=== PATIENT | female | born 1980 | race Caucasian/White ===

== ENCOUNTER 2017-08-30 13:05 | Inpatient (IN) | payer OTHER ==
[2017-08-30 13:45] LABS: Lavender RECEIVED; Red RECEIVED
[2017-08-30 13:48] LABS: #Basophils 0.2 thou/uL (0.0-0.2); #Eosinphils 0.5 thou/uL (0.0-0.7); #Lymphocytes 4.1 thou/uL (1.20-3.40); #Monocytes 0.8 thou/uL (0.11-0.59); #Neutrophils 7.1 thou/uL (1.40-6.50); %Basophils 1.3 % (0.0-1.0); %Eosinophils 3.7 % (0.0-10.0); %Lymphocytes 32.5 % (21.0-51.0); %Monocytes 6.2 % (0.0-10.0); %Neutrophils 56.3 % (42.0-75.0); Hemoglobin 15.6 g/dL (12.0-16.0); Mean Corpuscular HGB CONC 33.4 g/dL (32.0-36.0); Mean Corpuscular Hemoglobin 31.8 pg (27.0-31.0); Mean Corpuscular Volume 95.3 fl (81.0-99.0); Mean Platelet Volume 7.5 fL (7.4-10.4); Platelet Count 473 thou/uL (130-400); RBC Distribution Width 11.5 % (11.5-14.5); Red Blood Cell (RBC) Count 4.91 mill/uL (4.20-5.40); White Blood Cell (WBC) Count 12.5 thou/uL (4.8-10.8)
[2017-08-30 14:12] LABS: ALT (SGPT) 22 U/L (8-55); AST (SGOT) 18 U/L (5-34); Albumin 4.7 g/dL (3.5-5.0); Alkaline Phosphatase 74 U/L (40-150); Anion Gap 12 mmol/L (10-20); BUN (Urea Nitrogen) 12 mg/dL (7.0-18.7); Bilirubin, Total 0.8 mg/dL (0.2-1.2); Calc. Creatinine Clearance 0 mL/min (70-130); Calcium 10.1 mg/dL (7.8-10.44); Carbon Dioxide 30 mmol/L (22-29); Chloride 101 mmol/L (98-107); Estimated GFR-MDRD 76; Globulin 3.4 g/dL (2.4-3.5); Glucose 88 mg/dL (70-105); Potassium 4.1 mmol/L (3.5-5.1); Protein, Total 8.1 g/dL (6.0-8.3); Sodium 139 mmol/L (136-145)
[2017-08-30 14:16] LABS: CKMB 0.9 ng/mL (0-6.6); Troponin I Less than 0.010 ng/mL (< 0.028)
[2017-08-30] MEDS ORDERED: Sodium Chloride 0.9% 10 ML ONE ×2 (14:39→18:16)
[2017-08-30] MEDS ORDERED: Thrombin 5000 UNITS/5 ML VIAL ONE ×2 (14:39→17:43)
[2017-08-30] MEDS ORDERED: Bupivacaine 0.5% 10 ML VIAL ONE (14:39)
--- NOTE | 2017-08-30 14:44 | PRG ---
DATE OF SERVICE: 08/30/2017 I personally interviewed and examined the patient and agree with documentation of Ana Tilley PA-C , dated 08/30/2017 in the [facility] system. Briefly, Rosey Sosa is a 37-year-old woman referred to Dr. Aleman's clinic for evaluation of new o nset back and leg discomfort starting 6 days ago. She came to our emergency department at that time and was evaluated for severe back pain, inability to stand up straight and radiating pain down both l ower extremities along with saddle anesthesia. She was given pain medication and sent up in clinic i n follow up. She made it to Ana Tilley's clinic today where symptoms were essentially the same as they were last week, although the pain is under some amount of better control. In the 6 days interv ening she has not had any incontinence, but she does have some saddle anesthesia. She has not lost u rine unwittingly. She has had no bowel movements. I am seeing her in the preoperative area in a stretcher and she has mild weakness of toe flexion bila terally. She has numbness in the S1 dermatome and the lower sacral dermatomes. I have reviewed an e mergent MRI scan performed today showing a very large intervertebral disk herniation at the lumbosacr al interspace causing pressure on all of the sacral nerve roots, higher up it is a little bit more pr ominent on the left lower down more prominent on the right. We discussed with Ms. Sosa the rationale for decompressing the sacral nerve roots. Those roots are particularly sensitive to ongoing stretch. So far, she has not had any incontinence, but I do not w ant it to progress to that. The size of the disk herniation is very significant. I offered a brenda ctomy with a microdiskectomy. INFORMED CONSENT: I discussed the indications, risks, benefits, alternatives, and expected outcomes of surgery. The risks, we discussed included, but were not limited to bleeding, infection, CSF leak, nerve damage, paralysis, incontinence, wheelchair dependence, major blood vessel injury, cardiopulmo nary complications of anesthesia and . She understands the risks and wants to proceed. Ms. Sosa has had nothing to eat or drink since 9:45 this morning. Even those sips were of clear li quids. She will be ready for surgery now.
[2017-08-30] MEDS ORDERED: Fentanyl 100 MCG/2 ML VIAL ONE ×3 (14:47→18:49)
[2017-08-30] MEDS ORDERED: Midazolam HCl 2 mg/2 ml Vial ONE ×2 (14:52→15:05)
[2017-08-30] MEDS ORDERED: CEFAZOLIN/Water 2 GM/20 ML SYRINGE ONE (14:57)
[2017-08-30] MEDS ORDERED: HYDROmorphone 0.5 MG/0.5 ML SYRINGE ONE (15:33)
[2017-08-30] MEDS ORDERED: Lidocaine 1% PF 5 ML VIAL ONE (17:12)
[2017-08-30] MEDS ORDERED: Ondansetron HCl/PF 4 MG/2 ML Vial ONE (17:12)
[2017-08-30] MEDS ORDERED: Propofol 200 MG/20 ML VIAL ONE (17:12)
[2017-08-30] MEDS ORDERED: Dexamethasone 20 MG/5 ML VIAL ONE (17:12)
[2017-08-30] MEDS ORDERED: PHENYLEPHRINE-NS 100 MCG/ML 10 ML SYRINGE ONE (17:12)
[2017-08-30] MEDS ORDERED: Ondansetron HCl/PF 4 MG/2 ML Vial IVP PRN ×2 (18:31→18:41)
[2017-08-30] MEDS ORDERED: Promethazine HCl 25 MG/ML VIAL IM PRN (18:31)
[2017-08-30] MEDS ORDERED: Morphine Sulfate 2 MG/ML SYRINGE SLOW IVP PRN (18:31)
[2017-08-30] MEDS ORDERED: Promethazine HCl 25 MG/ML VIAL SLOW IVP PRN (18:31)
[2017-08-30] MEDS ORDERED: Acetaminophen/Codeine 30-300mg Tablet PO PRN (18:41)
[2017-08-30] MEDS ORDERED: Morphine 4 MG/ML Carpuject SLOW IVP PRN (18:41)
[2017-08-30] MEDS ORDERED: Cyclobenzaprine 10 MG TAB PO PRN (18:41)
[2017-08-30] MEDS ORDERED: Fentanyl 250 MCG/5 ML VIAL ONE (19:13)
--- NOTE | 2017-08-30 20:44 | OP ---
DATE OF SURGERY: 08/30/2017 SURGEON: Dr. Flores. GROUP PRESIDENT: Nikolai Calloway PA-C. PREOPERATIVE INDICATION: Treat pain, prevent further neurological deterioration. PREOPERATIVE DIAGNOSES: Extremely large intervertebral disk herniation L5-S1 with pressure on the ca uda-equina nerve roots and spinal anesthesia. POSTOPERATIVE DIAGNOSES: Extremely large intervertebral disk herniation L5-S1 with pressure on the c auda-equina nerve roots and spinal anesthesia. OPERATIVE PROCEDURES: Decompressive laminectomy, medial facetectomy, foraminotomy L5-S1, microdiskec nat, bilateral L5-S1, repair of durotomy L5-S1. PREOPERATIVE MEDICATION: Ancef 2 grams IV. DRAIN NUMBER: Zero. DRAIN TYPE: None. OPERATIVE DICTATION: The patient was brought to the operating room. General endotracheal anesthesia was induced. The patient was positioned prone on the operating table with her chest and hips are solis pported by gel-filled chest rolls. A lateral fluoro radiograph was used to plan our incision. The l umbar skin was sterilely prepped and draped. We opened with a 10-blade knife and controlled bleeding with bipolar and monopolar cautery. We used monopolar cautery to dissect through the subcutaneous t issues to the thoracodorsal fascia. We incised the fascia in the midline and reflected the paraspina l muscles off the spinous process and lamina of L4, L5, and S1. Self-retaining retractor was placed. A lateral fluoro radiograph confirmed the levels upon, which we were operating. Using Adson and Ke rrison rongeurs, we fashioned laminectomy of L5 entirely. The dura was quite thin in the midline, wh ere there was a prominence of a bifid L5 lamina. We reflected the dura had been pushed backwards by intervertebral disk herniation and then thinned over time. There was arachnoid seen and flow of CSF leak, but no significant leak. We widened our laminectomy defect until we were flushed with the pedi cles. We brought the operating microscope into the field. Under microscopic magnification and using microsurgical techniques, we repaired the dura with interru pted 6-0 nylon sutures in a watertight fashion. We then turned our attention to the diskectomy. We continued under the operating microscope, we removed medial facet joints on either side until we were flushed with the S1 pedicles. We gently retracted the S1 nerve root medially first from the left si de and we incised protruding disk in the ventral epidural space. Multiple fragments of disk were rem josephine by sweeping medially. These were extremely large fragments of disks as well. The left-sided ne rve root was well-decompressed at the completion of the diskectomy. The right side of the nerve root still seemed stretch. There was more of a struggle to mobilize the right side of the S1 nerve root, as there was a disk protrusion far out in the lateral recess. Eventually, we were able to incise th e lateral portion of it and removed multiple large fragments of disk from that direction as well and the S1 nerve root was well decompressed. It was no longer stretched whatsoever. We looked eventuall y under the S2 and other sacral nerve roots and found no further disk protrusion. There was a large venous structure and epidural fat, but no cartilage seen. We irrigated copiously with bacitracin irr igation. We reinforced our dural closure with DuraSeal tissue sealant. We infused local anesthetic in the paraspinal muscles. We closed the wound in anatomic layers after vancomycin powder was admini stered in the wound. We applied a sterile dressing. This was a clean case and no contamination.
--- NOTE | 2017-08-30 20:57 | HP ---
HISTORY OF PRESENT ILLNESS: Ms. Sosa is a 37-year-old female that presented today for evaluation at [facility], and saw Ana Tilley PA-C, for back and leg pain. She reports that this history of low back pain in the past as typically mechanical in nature, worse with activity and better with rest. She states that in mid 07/2017, she had progressive worsening of the pain with bilateral leg pain. There is no particular inciting event. Six days ago, she reports pain that became so severe and that she had to take an ambulance to the ER, where she was treated with IV morphine and Dilaudid with improvement and discharged to home. She reports leg pain is equivalent to back pain. Her leg pain is in the left S1 dermatome and the right radicular pain travels buttocks. There is no weakness in the legs, but she does report saddle anesthesia, no bowel movement x1 week and feeling as if she can probably empty her bladder. She has completed a course of steroids as prescribed by the emergency department and is also taking a muscle relaxer and Ellinwood for pain. She has had an MRI Lumbar at [facility] on 08/30/17. REVIEW OF SYSTEMS: The patient reports saddle anesthesia. She reports no bowel movement for 1 week of some abdominal pain with constipation, low back pain, and leg pain. All other review of systems is negative, unless stated in the above HPI. PAST MEDICAL HISTORY: Asthma, exacerbated. Her exercise induced and sometimes due to environmental allergies, seasonal allergies, anxiety, mammogram 2013 benign findings. PAST SURGICAL HISTORY: Denies past surgical history. HOSPITALIZATIONS: Denies past hospitalizations. FAMILY HISTORY: Father is alive with seizures. Mother is alive, has CVA x2 secondary to hypertension, diagnosed with hypertension and stroke. She has 7 siblings are alive and healthy. One sister has autoimmune disease. SOCIAL HISTORY: The patient is a nonsmoker. She occasionally uses alcohol. She has 2-3 cups of caffeine per day. She is a teacher. She is , has 1 child. She runs 4-1/2 to 5 miles a day. MEDICATIONS: Taking, 1. Prednisone. 2. [place]inwood. 3. Citalopram. 4. Hydrobromide 10 mg 1 tablet orally once a day. 5. Claritin-D 24 hour mg tablet extended release 24 hours as needed orally once a day. 6. Augmentin 785/125 mg tablet 1 tablet orally once q.12 hours. 7. Albuterol 90 mcg/inhaler aerosol with adapter 2 puffs inhaled 4 times a day p.r.n. for cough. ALLERGIES: No known drug allergies. PHYSICAL EXAMINATION: HEENT: Normocephalic, atraumatic. Hearing intact. Moist mucous membranes. Trachea is midline. Eyes: Pupils are equal and reactive to light. Extraocular muscles are intact. Sclerae is white, nonicteric. NEUROLOGIC: Cranial nerves II through XII are grossly intact. Speech is fluent. She answers my questions appropriately. She reports saddle anesthesia and lumbar radiculopathy, bilateral S1 dermatome. Lower extremities does not disclose any deep tendon reflex asymmetry. No ankle clonus bilaterally. Positive left SLR. BACK: Low back exam, normal. Range of motion, nontender. ASSESSMENT: 1. Lumbar radiculopathy, low back pain. 2. Cauda equina syndrome. PLAN: Dr. Flores and I saw the patient came into the operating room. An MRI was completed that showed a large L5-S1 disk by pressing against the S1 nerve roots. Because of her symptoms of cauda equina pressure, we opted to take her to the OR and decompress L5-S1 herniated nucleus pulposus. I reviewed the plan, risks, benefits, alternatives, and expected results from surgery of the patient. She is fully aware and is willing to proceed with the surgery. RAMÓN
[2017-08-30] MEDS: Sodium Chloride 0.9% 1,000 ML IV SCH (21:29)
[2017-08-30] MEDS: CEFAZOLIN/Water 2 GM/20 ML SYRINGE SLOW IVP SCH (23:14)
[2017-08-31] MEDS: CEFAZOLIN/Water 2 GM/20 ML SYRINGE SLOW IVP SCH (06:23)
--- NOTE | 2017-08-31 07:14 | PRG ---
DATE OF SERVICE: 08/31/2017 Ms. Sosa is a 37-year-old female, who is status post 1 day from a L5-S1 laminectomy and T-lift with dural repair. This morning, she has no new neurologic deficits on exam. The pain in her left leg and right buttock has resolved. She still has some incisional low back pain, which I explained to her is normal after surgery. She has a [place] in this morning, because she has been flat for the past 12 hours. This morning, she is able to sit up, have a regular diet, and I encouraged her to ambulate as much as possible at all. If she is safe for activities of daily living this morning, she can be discharged home. I will put in the discharge plan and follow up. Vitals overnight have been stable. The paresthesias in the saddle region have also resolved If there are any further questions, please feel free to contact Neurosurgery. RAMÓN
[2017-08-31] MEDS: Acetaminophen/Codeine 30-300mg Tablet PO PRN ×2 (10:48→15:06)
[2017-08-31] MEDS: Sodium Chloride 0.9% 1,000 ML IV SCH (10:55)
[2017-08-31 16:20] VITALS: BP 126/85; TEMP 98.4
== END 2017-08-31 16:45 | disposition home or self-care (01) | DRG 519 ==
LOC: ERS 13:05 → SDC 14:17 → SJJU 20:08
PROVIDERS: ADMIT Neurological Surgery; ATTEND Neurological Surgery
PROC: 01NB0ZZ Release Lumbar Nerve, Open Approach (ICD-10-PCS; principal; 2017-08-30)
PROC: 0SB40ZZ Excision of Lumbosacral Disc, Open Approach (ICD-10-PCS; 2017-08-30)
PROC: 00QT0ZZ Repair Spinal Meninges, Open Approach (ICD-10-PCS; 2017-08-30)
DX: M51.17 Intervertebral disc disorders with radiculopathy, lumbosacral region (principal); G83.4 Cauda equina syndrome; K59.00 Constipation, unspecified; R20.0 Anesthesia of skin
CPT/HCPCS: 72148; 76001; 80053; 82553; 84484; 85025; 86850; 86900; 86901; 93005; A4216; J0131; J1100; J1170; J2001; J2250; J2270; J2405; J2704; J3010; J3370; J3490